=== PATIENT | female | born 1935 | race Hispanic/Latino ===

== ENCOUNTER 2019-07-28 17:52 | Inpatient (IN) | payer MEDICARE ==
[~2019-07-28] VITALS: Ht 154.9 cm; Wt 59.9 kg
[2019-07-28] MEDS ORDERED: SODIUM CHLORIDE 0.9% 1000ML 1,000 ML IV STA (18:16)
[2019-07-28] MEDS ORDERED: ONDANSETRON HCL INJ 2MG/ML 2ML 2 MG/ML VIAL IV PRN (18:30)
[2019-07-28] MEDS ORDERED: DIPHENHYDRAMINE HCL INJ 50 MG/ML VIAL IV PRN (18:30)
[2019-07-28] MEDS ORDERED: ENALAPRILAT IV INJ 1.25 MG/ML VIAL IV PRN (18:30)
[2019-07-28] MEDS ORDERED: MORPHINE SULFATE 2 MG/ML SYR 1ML IV PRN (18:30)
--- NOTE | 2019-07-28 19:05 | NUR ---
REC'D REPORT FROM OFF GOING BRET DOUGLAS. PT TO BE TRANSFERRED TO [facility]
[2019-07-28] MEDS ORDERED: SODIUM CHLORIDE 0.9% 1000ML 1,000 ML ONE (19:43)
[2019-07-28] MEDS ORDERED: PIPER-TAZ 3.375 GM 50 ML ONE (19:43)
[2019-07-28 20:00] VITALS: BP 145/63
[2019-07-28] MEDS: PIPER-TAZ 3.375 GM 50 ML IV SCH (20:10)
[2019-07-28] MEDS: SODIUM CHLORIDE 0.9% 1000ML 1,000 ML IV SCH (20:10)
--- NOTE | 2019-07-28 20:20 | NUR ---
REPORT TO GEORGE FOR RM 213. AWAITING ARRIVAL OF EMS FOR TRANSPORT
--- NOTE | 2019-07-28 20:40 | NUR ---
REPORT TO EMS
--- NOTE | 2019-07-28 21:15 | NUR ---
PT ADMITTED TO RM 213 VIA STRETCHER FROM [facility]. PT ALERT AND ORIENTED TO NAME, HOSPITAL, DIAGNOSIS: LEFT SIDE COLITIS WITH ABSCESS. RR EVEN AND UNLABORED. SKIN WARM AND INTACT. LAST BM 07/27. DENIES DYSURIA. PT C/O LOWER ABDOMINAL PAIN, 09/13. NO ACUTE DISTRESS AT THIS TIME. PT/FAMILY ORIENTED TO ROOM. CALL LIGHT WITHIN REACH. PT INSTRUCTED TO CALL FOR ASSISTANCE. PT IS NPO AT THIS TIME. CALL LIGHT WITHIN REACH. BED LOW/LOCKED. WILL CONTINUE TO MONITOR.
[2019-07-28 22:10] VITALS: BP 120/56
[2019-07-28 22:14] VITALS: BP 120/56
[2019-07-28] MEDS: FAMOTIDINE 20 MG/2 ML VIAL IV SCH (22:58)
[2019-07-28] MEDS: METRONIDAZOLE 500MG/NS 100ML 100 ML IV SCH (22:58)
[2019-07-29] VITALS (8 sets, daily range): BP systolic 106–123; BP diastolic 51–79
[2019-07-29] MEDS: PIPER-TAZ 3.375 GM 50 ML IV SCH ×4 (02:00→20:32)
[2019-07-29] MEDS: SODIUM CHLORIDE 0.9% 1000ML 1,000 ML IV SCH (06:02)
[2019-07-29] MEDS: METRONIDAZOLE 500MG/NS 100ML 100 ML IV SCH ×3 (06:33→22:09)
[2019-07-29] MEDS: FAMOTIDINE 20 MG/2 ML VIAL IV SCH ×2 (08:40→21:00)
[2019-07-29 09:26] LABS: HEMOGLOBIN 11.3 g/dL (12.0-16.0); MEAN CORPUSCULAR HEMOGLOBIN 31.3 pg (28-32); MEAN CORPUSCULAR HGB CONC 31.4 g/dL (31-35); MEAN CORPUSCULAR VOLUME 99.7 fL (81-99); PLATELET COUNT 233 x10e3/uL (140-360); RED BLOOD COUNT 3.61 x10e6/uL (3.6-5.1); RED CELL DISTRIBUTION WIDTH 12.6 % (11.7-14.4)
[2019-07-29 09:47] LABS: ANION GAP 8.6 mmol/L (8-16); BLOOD UREA NITROGEN 13 mg/dL (7-26); BUN/CREATININE RATIO 16 (6-25); CALCIUM 8.2 mg/dL (8.4-10.2); CARBON DIOXIDE 26 mmol/L (22-29); CHLORIDE 109 mmol/L (98-107); EST GLOMERULAR FILTRATION RATE > 60 ML/MIN (60-); GLUCOSE 84 mg/dL (74-118); POTASSIUM 4.6 mmol/L (3.5-5.1); SODIUM 139 mmol/L (136-145)
--- NOTE | 2019-07-29 10:10 | NUR ---
No concerns expressed. Provided pastoral presence, hospitality, and blessing. JAIMIE LEAL Welding Machine Operator [facility] O: [phone]
--- NOTE | 2019-07-29 10:18 | Consultation ---
DATE OF CONSULTATION: 07/29/2019 CHIEF COMPLAINT: Abdominal pain. HISTORY OF PRESENT ILLNESS: This patient is an 84-year-old female with one-week history of abdominal pain in lower abdomen with low-grade fevers with decreased appetite, but no nausea, vomiting, or diarrhea. PAST MEDICAL HISTORY: Significant for hypotension, high cholesterol, and history of CVA. PAST SURGICAL HISTORY: Positive for hysterectomy. ALLERGIES: THE PATIENT HAS NO DRUG ALLERGIES. SOCIAL HABITS: No smoking or alcohol use. REVIEW OF SYSTEMS: As mentioned in HPI. Particularly, no chest pain or shortness of breath. PHYSICAL EXAMINATION: VITAL SIGNS: Stable. She is afebrile. The patient is awake, alert, in mild to moderate discomfort. HEENT: Sclerae anicteric. NECK: Supple. LUNGS: Clear. HEART: Regular rate and rhythm. ABDOMEN: Soft with some guarding, tenderness, and rebound in the lower abdomen in the left lower quadrant and suprapubic region. EXTREMITIES: No cyanosis or edema. LABORATORY DATA: White cell count is 4.6 and hemoglobin of 11. CT of the abdomen reportedly show sigmoid diverticulitis with 3 cm abscess. ASSESSMENT: Acute diverticulitis with 3 cm abscess. PLAN: IV antibiotics. Consult IR for possible percutaneous drainage. We will follow the patient with you. Jose Rafael Sharp MD DNCurtis/MODL /[id number]
[2019-07-29 19:07] LABS: EOSINOPHILS % (MANUAL) 2 % (0-7); LYMPHOCYTES % (MANUAL) 35 % (19-48); MONOCYTES % (MANUAL) 7 % (3.4-9.0); NEUTROPHILS % (MANUAL) 49 % (40-74)
[2019-07-29 19:08] LABS: ANISOCYTOSIS MODERATE; PLATELET ESTIMATE ADEQUATE; PLATELET MORPHOLOGY COMMENT NORMAL; POIKILOCYTOSIS SLIGHT; RBC MORPHOLOGY COMMENT NORMAL
--- NOTE | 2019-07-29 19:20 | NUR ---
REPORT GIVEN TO ONCOMING NURSE, WALKING ROUNDS COMPLETE.
--- NOTE | 2019-07-29 19:26 | NUR ---
Patient received lying in bed. AAO x 4. Patient had no complaints of pain. No signs of respiratory distress. Fall precautions implemented. Patient instructed to call for assistance when needed. Call light within reach.
[2019-07-29] MEDS ORDERED: SODIUM CHLORIDE 0.9% 250ML 250 ML ONE (20:18)
--- NOTE | 2019-07-29 21:01 | NUR ---
Dr. Sharp paged to clarify if patient is having procedure done tomorrow (Percutaneous Drainage of Abscess) . Dr. Sharp confirmed procedure would be done by IR tomorrow.
--- NOTE | 2019-07-29 21:05 | NUR ---
Dr. Kohli notified of patient's NPO status without fluids and patient taking Jantoven 3mg daily at home. New order received for D5NS @ 75s cc/hr and PT/INR in am. Also, Dr. Kohli notified of patient's insomnia since the past 3 days. No new order received.
--- NOTE | 2019-07-29 21:17 | NUR ---
Radiology Dept. notified of IR procedure scheduled for tomorrow------Percutaneous Drainage of Abscess.
[2019-07-29] MEDS: DEXTROSE 5%/0.9% SOD CHL 1,000 ML IV SCH (21:27)
--- NOTE | 2019-07-29 22:14 | NUR ---
Law Instructor (Yojana) called stating no "imaging" has been done for patient. IR cannot perform procedure without any form of imaging record. Dr. Sharp paged to obtain "imaging" orders. Awaiting call back.
--- NOTE | 2019-07-29 23:07 | NUR ---
New order received from Dr. Sharp for CT ABD/PELVIS W.
[2019-07-29] MEDS ORDERED: JANTOVEN3 MG PO (23:26)
[2019-07-29] MEDS ORDERED: SODIUM CHLORIDE 0.9% 50ML 50 ML ONE (23:26)
[2019-07-29] MEDS ORDERED: DIGOXIN125 MCG PO (23:26)
[2019-07-29] MEDS ORDERED: METOPROLOL TART25 MG PO (23:26)
[2019-07-29] MEDS ORDERED: IOPAMIDOL 370 MG/ML 200 ML INFUS..BTL INJ ONE (23:26)
[2019-07-29] MEDS ORDERED: SIMVASTATIN20 MG PO (23:26)
--- NOTE | 2019-07-29 23:26 | NUR ---
Patient off floor for CT/ABD/PEL W
--- NOTE | 2019-07-29 23:28 | NUR ---
Input of patient's home medications given by daughter---Surekha
--- NOTE | 2019-07-29 23:38 | NUR ---
Patient back to floor from CT/ABD/PEL W . Patient in stable condition
[2019-07-30] VITALS (9 sets, daily range): BP systolic 111–140; BP diastolic 55–67
--- NOTE | 2019-07-30 00:34 | Diagnostic Imaging Report ---
EXAM: CT Abdomen and Pelvis WITH contrast INDICATION: Diverticulitis COMPARISON: None. TECHNIQUE: Abdomen and pelvis were scanned utilizing a multidetector helical scanner from the lung base to the pubic symphysis after administration of IV contrast. Coronal and sagittal reformations were obtained. Routine protocol was performed. Scan was performed when during portal venous phase. IV CONTRAST: 100 mL of Isovue 370 ORAL CONTRAST: None COMPLICATIONS: None RADIATION DOSE: Total DLP: 200 mGy*cm Estimated effective dose: (DLP x 0.015 x size factor) mSv CTDIvol has been reviewed. It is below the limits set by the Radiation Protocol Committee (RPC). Dose modulation, iterative reconstruction, and/or weight based adjustment of the mA/kV was utilized to reduce the radiation dose to as low as reasonably achievable. FINDINGS: LINES and TUBES: None. LOWER THORAX: Partially visualized left basilar ground glass/consolidative opacity HEPATOBILIARY: A 2.1 cm simple appearing left hepatic cyst. No suspicious focal hepatic lesions. No biliary ductal dilation. GALLBLADDER: No radio-opaque stones or sludge. No wall thickening. SPLEEN: No splenomegaly. PANCREAS: No focal masses or ductal dilatation. ADRENALS: No adrenal nodules KIDNEYS/URETERS: Kidneys enhance symmetrically. No hydronephrosis. No cystic or solid mass lesions. No stones. GI TRACT: Focal wall thickening in the sigmoid colon with surrounding fat stranding. Colonic diverticuli, worst in the sigmoid colon. No abnormal distention or evidence of bowel obstruction. Appendix is normal. PELVIC ORGANS/BLADDER: Hysterectomy. No adnexal masses. Urinary bladder unremarkable. LYMPH NODES: No lymphadenopathy. VESSELS: Scattered mild arterial vascular calcifications. PERITONEUM / RETROPERITONEUM: No free air or fluid. BONES: There are degenerative changes in the spine. Mild T12 vertebral body compression fracture, likely chronic. Low bone mineral density. SOFT TISSUES: Unremarkable. IMPRESSION: 1. Acute uncomplicated sigmoid diverticulitis. 2. Mild T12 vertebral body compression fracture, likely chronic. Low bone mineral density. 3. Partially visualized left basilar ground glass/consolidative opacity could be atelectasis or pneumonia. Signed by: Maurice Barron DO on 07/30/2019 12:30 AM
[2019-07-30] MEDS: PIPER-TAZ 3.375 GM 50 ML IV SCH ×4 (02:15→20:00)
--- NOTE | 2019-07-30 02:50 | NUR ---
Dr. Natalia Vásquez here to see patient.
--- NOTE | 2019-07-30 03:05 | NUR ---
Patient informed of upcoming procedure----Percutaneous drainage of abscess. Patient verbalized understanding and signed "Disclosure and Consent" form.
[2019-07-30 05:30] LABS: BASOPHILS % 0.8 % (0.0-1.0); HEMOGLOBIN 11.9 g/dL (12.0-16.0); LYMPHOCYTES # (AUTO) 1.4 (1.0-3.2); LYMPHOCYTES % 35.2 % (18.0-39.1); MEAN CORPUSCULAR HEMOGLOBIN 31.3 pg (28-32); MEAN CORPUSCULAR HGB CONC 32.2 g/dL (31-35); MEAN CORPUSCULAR VOLUME 97.4 fL (81-99); MONOCYTES # (AUTO) 0.4 (0.2-0.8); MONOCYTES % 11.2 % (4.4-11.3); NEUTROPHILS % 51.3 % (38.7-80.0); PLATELET COUNT 248 x10e3/uL (140-360); RED CELL DISTRIBUTION WIDTH 12.4 % (11.7-14.4)
[2019-07-30 05:45] LABS: INR 1.17; PROTHROMBIN TIME 15.7 seconds (11.9-14.5)
[2019-07-30 06:15] LABS: FERRITIN 87.12 ng/mL (4.63-204.00)
[2019-07-30] MEDS: METRONIDAZOLE 500MG/NS 100ML 100 ML IV SCH ×3 (06:16→22:45)
--- NOTE | 2019-07-30 06:55 | NUR ---
Patient resting comfortably. Walking rounds done. BSSR given to oncoming nurse.
[2019-07-30] MEDS ORDERED: HYDROMORPHONE 1MG/1ML INJ IV PRN (08:00)
--- NOTE | 2019-07-30 08:44 | Progress Note ---
DATE: 07/30/2019 SUBJECTIVE: Ms. Frazier is an 84-year-old female with history of atrial fibrillation, hypertension, hyperlipidemia, who was seen in the clinic complaining of abdominal pain and chills. Abdominal and pelvic CT done as an outpatient showed diverticulitis with probably abscess, so the patient was sent to the emergency room for admission. Repeat abdomen and pelvic CT done yesterday does not show any abscess formation. PHYSICAL EXAMINATION: GENERAL: She is awake and alert. VITAL SIGNS: Temperature is 96.1, blood pressure 113/55. HEART: Regular rate. LUNGS: Clear to auscultation. ABDOMEN: Distended. She has suprapubic and left lower quadrant tenderness. LABORATORY DATA: On the blood work, white count is 3.83, hemoglobin is 11.9, hematocrit 37. Potassium 4.7, creatinine is 0.80. INR is 1.17. Like I said, the repeated CT shows acute uncomplicated sigmoid diverticulitis. ASSESSMENT: 1. Acute diverticulitis. 2. Dysuria. Urine was not done. 3. Atrial fibrillation. 4. Hypertension. 5. Hyperlipidemia. PLAN: At present time is to continue the patient n.p.o., continue IV antibiotics. If the pain improves, we can probably start her on some clear diet. As per the last abdominal and pelvic CT does not look that the patient needs any type of interventional radiologist for percutaneous drainage. We will discuss the case with Dr. Sharp. All this was explained to patient. All questions were answered to satisfaction. MD CASEY Felix/RAINA /[id number]
[2019-07-30] MEDS: FAMOTIDINE 20 MG/2 ML VIAL IV SCH ×2 (09:19→22:00)
[2019-07-30] MEDS: DEXTROSE 5%/0.9% SOD CHL 1,000 ML IV SCH ×2 (16:52→23:40)
--- NOTE | 2019-07-30 19:54 | NUR ---
walking rounds complete, report given to oncoming nurse.
--- NOTE | 2019-07-30 19:55 | NUR ---
Patient received lying in bed. AAO x 3. No acute distress noted. Call light within reach.
--- NOTE | 2019-07-30 22:10 | NUR ---
Patient complained of pain to bilateral feet (11/13). Dr. Seun gonzalez. Awaiting call back. Addendum: 07/30/19 at 2215 by Franci Rachel RN Please disregard above entry: Wrong patient
--- NOTE | 2019-07-30 22:31 | NUR ---
Urine sample sent to lab for analysis.
[2019-07-30 22:39] LABS: CLARITY,URINE CLOUDY (CLEAR); COLOR,URINE YELLOW (YELLOW)
[2019-07-30 22:40] LABS: BILIRUBIN,URINE NEGATIVE (NEGATIVE); KETONES,URINE 2+ (NEGATIVE); LEUKOCYTE ESTERASE ,URINE NEGATIVE (NEGATIVE); NITRITE,URINE NEGATIVE (NEGATIVE); PROTEIN,URINE DIPSTICK NEGATIVE (NEGATIVE); URINE UROBILINOGEN 0.2 mg/dL (0.2 - 1)
[2019-07-30 23:05] LABS: WBC,URINE (MAN) 0-5 /HPF (0-5)
[2019-07-30 23:06] LABS: BACTERIA,URINE MODERATE /HPF; EPITHELIAL CELLS,URINE FEW /LPF
[2019-07-31] VITALS (10 sets, daily range): BP systolic 80–162; BP diastolic 41–68
--- NOTE | 2019-07-31 00:58 | NUR ---
Dr. Natalia Vásquez here to see patient. New order received for Melatonin 5 mg HS and Clear liquid diet.
[2019-07-31] MEDS ORDERED: MELATONIN 5 MG TABLET PO ONE (01:00)
[2019-07-31] MEDS: PIPER-TAZ 3.375 GM 50 ML IV SCH ×3 (02:00→14:00)
[2019-07-31 05:30] LABS: BASOPHILS % 0.8 % (0.0-1.0); EOSINOPHILS # (AUTO) 0.1 (0.0-0.4); EOSINOPHILS % 1.6 % (0.0-6.0); HEMATOCRIT 35.5 % (34.2-44.1); HEMOGLOBIN 11.7 g/dL (12.0-16.0); LYMPHOCYTES # (AUTO) 1.7 (1.0-3.2); LYMPHOCYTES % 43.2 % (18.0-39.1); MEAN CORPUSCULAR HEMOGLOBIN 31.5 pg (28-32); MEAN CORPUSCULAR VOLUME 95.7 fL (81-99); MONOCYTES # (AUTO) 0.5 (0.2-0.8); NEUTROPHILS # (AUTO) 1.6 (2.1-6.9); NEUTROPHILS % 42.4 % (38.7-80.0); PLATELET COUNT 262 x10e3/uL (140-360); RED BLOOD COUNT 3.71 x10e6/uL (3.6-5.1); RED CELL DISTRIBUTION WIDTH 12.3 % (11.7-14.4)
[2019-07-31] MEDS: METRONIDAZOLE 500MG/NS 100ML 100 ML IV SCH ×2 (06:21→14:00)
--- NOTE | 2019-07-31 06:45 | NUR ---
Shift report given to oncoming nurse.
[2019-07-31] MEDS: FAMOTIDINE 20 MG/2 ML VIAL IV SCH (09:00)
--- NOTE | 2019-07-31 09:13 | Discharge Summary ---
HISTORY OF PRESENT ILLNESS: Ms. Frazier is an 84-year-old female with history of hypertension, hyperlipidemia, atrial fibrillation, came in to the clinic complaining of abdominal pain and chills. Outpatient abdominal and pelvis CT showed diverticulitis with probably abscess, so the patient was admitted to the hospital. The repeated CT in the hospital did not show any abscess. The patient has been n.p.o., on IV antibiotics, but she was started on clear liquid diet today. So, the plan if she is stable and she can tolerate a diet, is to discharge her home. PHYSICAL EXAMINATION: GENERAL: Today, she is awake and alert. She is feeling better. VITAL SIGNS: Temperature is 97, blood pressure 120/56. HEART: Regular rate. LUNGS: Clear to auscultation. ABDOMEN: With mild tenderness in the suprapubic area. LABORATORY DATA: On the blood work, white count is 3.82, hemoglobin 11.7, hematocrit 35.5. Potassium 4.6. Creatinine 0.80. Iron was normal, vitamin B12 levels also. Repeat CAT scan did not show any abscess. DISCHARGE DIAGNOSES: 1. Acute diverticulitis. 2. Dysuria. Urine culture came back normal. 3. Atrial fibrillation. 4. Hypertension. 5. Hyperlipidemia. PLAN: Plan at the present time is to start the patient on clear diet and advance as tolerated. If she is stable, she could go home on p.o. Cipro and Flagyl and follow up with me in one week. All this was discussed with the patient. All questions were answered to satisfaction. Please see home medication reconciliation list. MD CASEY Felix/MODL /[id number]
--- NOTE | 2019-07-31 09:35 | NUR ---
Nutrition Screen Note RD Recommendation for Physician: -ADAT to GI soft per MD. Plan of Care: RD following, monitoring for tolerance and adequacy. ONS if intake is low. Nutrition reason for involvement: (Clear liquid x 3 days) Primary Diagnose(s): Left sided colitis with abscess PMH: significant for hypotension, high cholesterol, and history of CVA. Ht: 61 in Wt: 154 lb BMI: 29.1 kg/m2 IBW: [address] Assessment: 07/30: 84 YOF admitted for colitis with PMH listed above. The pt speaks Indonesian and some Indonesian, was able to speak with the patient; attempted cultural link but the call was dropped. She reported a good appetite and was unsure of any recent weight loss. There are no past weights in EMR. The pt denied N/V/C/D/chewing or swallowing issues as well as any food allergies. There was no family in the room. The pt has been on clear liquids for three days, observed eaten clear liquid breakfast tray at bedside. Per MD note- advance her diet today and then d/c home if she can tolerate the diet. Recommend ONS if the pt has low intake. LBM: 07/30. Chart reviewed. Labs and meds reviewed. Will continue to monitor. Current Diet: clear liquids Malnutrition Evaluation (07/30) The patient does not meet criteria for a specified degree of malnutrition at this time. Will re-evaluate at follow-up as appropriate. Diet Education Needs Assessment: Diet education not indicated, pt is on transition diet. Diet Adequacy: Not meeting calorie needs, Not meeting protein needs-pt is still on clear liquids Nutrition Care Level:2- pt is only on clear liquids Signed: Elle Ching RD, LD
--- NOTE | 2019-07-31 14:57 | NUR ---
IMM letter delivered and explained to pt. Signed copy placed in chart. Austrian copy provided to pt.
[2019-07-31] MEDS: DEXTROSE 5%/0.9% SOD CHL 1,000 ML IV SCH ×2 (18:00→19:51)
[2019-07-31] MEDS: MELATONIN 5 MG TABLET PO SCH (21:00)
--- NOTE | 2019-07-31 21:26 | NUR ---
PT C/O OF LEFT ARM PAIN AND CHEST PAIN. HR 124 R 20 O2 SAT 95% B/P 100/60. DAUGHTER CALLED CONCERNED PT HAVING CHEST PAIN. CHARGE NURSE NOTIFIED. STAT EKG DONE.
[2019-07-31] MEDS ORDERED: NITROGLYCERIN 0.4 MG SUBL ONE (22:04)
[2019-07-31] MEDS ORDERED: DIGOXIN INJ 0.25 MG/ML 2 ML AMP ONE (22:19)
[2019-07-31] MEDS ORDERED: SODIUM CHLORIDE 0.9% 1000ML 1,000 ML ONE (22:19)
--- NOTE | 2019-07-31 22:30 | NUR ---
B/P AT 2139 90/60 HR 84 R 20 O2 SAT 96% ON RA. B/P AT 2154 WAS 88/32 HR 128 R 20 PT CONTINUES TO REPORT PAIN IN CHEST AND LEFT ARM. DR DOMÍNGUEZ NOTIFIED AT 2144 AWAITING CALL BACK.O2 SAT 97%- PLACED ON 2L PER N/C. B/P LOW RAPID RESPONSE CALLED. EKG REPEATED. D5NS INCREASED TO BOLUS. ANOTHER EKG DONE PER RAPID RESPONSE TEAM. RECTAL TEMP 99.5 HR 128. B/P 88/32. DIGIXON GIVEN ORDERED.B/P IMPROVE 104/55 HR 114.LABS DRAWN ORDERED. PT TRANSPORTED TO ICU PER DR GOTTLIEB. FAMILY NOTIFIED BY 7P NURSE- TALKED WITH DEXTER HER DAUGHTER. RAPID RESPONSE DR CALLED DR DOMÍNGUEZ.
[2019-07-31] MEDS ORDERED: DIGOXIN INJ 0.25 MG/ML 2 ML AMP IV ONE (22:45)
[2019-07-31] MEDS ORDERED: SODIUM CHLORIDE 0.9% 1000ML 1,000 ML IV ONE (22:45)
[2019-07-31] MEDS ORDERED: AMIODARONE HCL 360MG 200 ML IV ONE (22:51)
[2019-07-31 22:52] LABS: BASOPHILS % 0.4 % (0.0-1.0); EOSINOPHILS # (AUTO) 0.1 (0.0-0.4); EOSINOPHILS % 1.7 % (0.0-6.0); HEMATOCRIT 39.3 % (34.2-44.1); HEMOGLOBIN 12.9 g/dL (12.0-16.0); LYMPHOCYTES # (AUTO) 2.5 (1.0-3.2); LYMPHOCYTES % 55.1 % (18.0-39.1); MEAN CORPUSCULAR HEMOGLOBIN 31.7 pg (28-32); MEAN CORPUSCULAR HGB CONC 32.8 g/dL (31-35); MEAN CORPUSCULAR VOLUME 96.6 fL (81-99); MONOCYTES # (AUTO) 0.7 (0.2-0.8); MONOCYTES % 14.3 % (4.4-11.3); NEUTROPHILS # (AUTO) 1.3 (2.1-6.9); NEUTROPHILS % 28.3 % (38.7-80.0); PLATELET COUNT 275 x10e3/uL (140-360); RED BLOOD COUNT 4.07 x10e6/uL (3.6-5.1); RED CELL DISTRIBUTION WIDTH 12.8 % (11.7-14.4)
[2019-07-31 22:56] LABS: INR 1.2
[2019-07-31 22:57] LABS: PARTIAL THROMBOPLASTIN TIME 39.2 seconds (23.8-35.5)
[2019-07-31] MEDS ORDERED: AMIODARONE HCL 150 MG/100 ML BAG IV ONE (23:00)
[2019-07-31] MEDS ORDERED: AMIODARONE HCL 360MG 200 ML IV NR (23:15)
[2019-07-31 23:18] LABS: MAGNESIUM 1.6 MG/DL (1.3-2.1)
[2019-07-31 23:22] LABS: ALBUMIN 3.2 g/dL (3.5-5.0); ANION GAP 14.5 mmol/L (8-16); CALCIUM 8.4 mg/dL (8.4-10.2); CREATININE, SERUM 0.95 mg/dL (0.57-1.11); POTASSIUM 3.5 mmol/L (3.5-5.1)
[2019-07-31 23:28] LABS: CREATINE KINASE MB 1.2 ng/mL (0-5.0)
[2019-08-01] VITALS (23 sets, daily range): BP systolic 77–130; BP diastolic 47–79
[2019-08-01] MEDS: PIPER-TAZ 3.375 GM 50 ML IV SCH ×4 (00:16→16:29)
[2019-08-01] MEDS: FAMOTIDINE 20 MG/2 ML VIAL IV SCH ×3 (00:17→21:18)
[2019-08-01] MEDS: METRONIDAZOLE 500MG/NS 100ML 100 ML IV SCH ×4 (00:18→23:48)
[2019-08-01] MEDS ORDERED: AMIODARONE HCL 360MG 200 ML IV ONE (05:08)
--- NOTE | 2019-08-01 09:03 | Progress Note ---
DATE: 08/01/2019 SUBJECTIVE: Ms. Frazier is an 84-year-old female with history of hypertension, hyperlipidemia, atrial fibrillation, who came to the emergency room because the CAT scan of her abdomen showed diverticulitis with probably abscess. She was started on IV antibiotics. She was seen by surgeon and GI. Repeated CAT scan did not show any abscess formation, so patient did not require any interventional procedure. Last night she developed chest pain and she was found to be on atrial fibrillation with rapid ventricular rate. Today, she was transferred to ICU. She is doing better and now, she converted to a regular rate and her rate is 64 per minute. PHYSICAL EXAMINATION: GENERAL: She is awake and alert. She is feeling much better. VITAL SIGNS: Temperature is 98.3, blood pressure 113/54, heart rate is 69 per minute. LUNGS: Clear to auscultation. ABDOMEN: Soft. LABORATORY DATA: On the blood work; white count is 4.61, hemoglobin 12.9, hematocrit 39.3, potassium 3.5, creatinine is 0.95. ASSESSMENT AND PLAN: 1. Acute diverticulitis. No need for interventional procedure. 2. Atrial fibrillation with rapid ventricular rate, now converted to sinus rhythm. 3. Hypertension. 4. Hyperlipidemia. PLAN: At present time is to continue on p.o. digoxin. Restart her Coumadin. She is on Lovenox. Continue to monitor PT/INR getting to between 2 and 3. Continue IV antibiotics. We are awaiting for Cardiology consult. All this was discussed with the patient. All questions were answered to satisfaction. MD CASEY Felix/RAINA /[id number]
[2019-08-01] MEDS: ENOXAPARIN SOD INJ 40 MG/0.4 ML SYR SC SCH ×2 (11:06→21:18)
[2019-08-01] MEDS: WARFARIN SOD 5 MG TAB PO SCH (16:29)
[2019-08-01] MEDS: DEXTROSE 5%/0.9% SOD CHL 1,000 ML IV SCH (17:17)
[2019-08-01] MEDS: AMIODARONE HCL 200 MG TAB PO SCH (17:17)
--- NOTE | 2019-08-01 17:19 | Consultation ---
DATE OF CONSULTATION: 08/01/2019 Cardiology Consultation HISTORY OF PRESENT ILLNESS: This is an 84-year-old woman, who initially presented on the with abdominal pain in the lower quadrants, low-grade fevers, decreased appetite, and was found to have diverticulitis. No surgery was needed and she was continued on antibiotics. Last night, she started developing chest pain, mild to moderate in intensity, located over the precordium. No radiation. No shortness of breath. No other exacerbating or relieving factors. She was found to be in atrial fibrillation, but converted with amiodarone. REVIEW OF SYSTEMS: Twelve-point review of system was conducted and is negative except as stated above in the HPI. PAST MEDICAL HISTORY: As stated above in the HPI. PAST SURGICAL HISTORY: None recent. PAST FAMILY HISTORY: Noncontributory to current illness. SOCIAL HISTORY: No illicit drug, alcohol, or tobacco use. ALLERGIES: NO KNOWN DRUG ALLERGIES. MEDICATIONS: See medication reconciliation form. PHYSICAL EXAMINATION: VITAL SIGNS: Temperature is 98.3, heart rate 68, respirations are 17, blood pressure is 113/54, and oxygen saturation is 99% on 2 liters nasal cannula. GENERAL: She is a well-appearing elderly woman, lying comfortably in bed, in no apparent distress. Alert and oriented x3. HEENT: Head is normocephalic and atraumatic. Eyes, extraocular muscles are intact. Conjunctivae are clear. NECK: No JVD. No bruits. CARDIOVASCULAR: She has regular rate and rhythm. LUNGS: Clear to auscultation. ABDOMEN: Soft, nontender, and nondistended. EXTREMITIES: No clubbing, cyanosis, or edema. VASCULAR: 2+ pulses. SKIN: Warm, dry, and intact. NEUROLOGIC: No focal deficits noted. LABORATORY DATA: Reviewed. A 12-lead electrocardiogram showed atrial fibrillation. IMPRESSION: 1. Diverticulitis. 2. Atrial fibrillation. 3. Abnormal echocardiogram. 4. Hypertension. 5. Hyperlipidemia. RECOMMENDATIONS: Her intravenous amiodarone has been discontinued. Start her on amiodarone 200 mg p.o. b.i.d. Continue Coumadin for therapeutic INR. Monitor daily electrolytes. We will check an echocardiogram. Antonio Connelly DO BM/MODL /[id number]
[2019-08-01] MEDS: MELATONIN 5 MG TABLET PO SCH (21:18)
--- NOTE | 2019-08-01 22:31 | NUR ---
Received report from ER nurse. Patient assigned to room 287.
--- NOTE | 2019-08-01 22:57 | NUR ---
Patient arrived to the floor via bed.
[2019-08-01] MEDS ORDERED: SODIUM CHLORIDE 0.9% 250ML 250 ML ONE (23:42)
--- NOTE | 2019-08-01 23:51 | NUR ---
Patient denies pain or discomfort at this time. Continue monitor.
[2019-08-02] VITALS (8 sets, daily range): BP systolic 120–161; BP diastolic 58–81
[2019-08-02] MEDS: PIPER-TAZ 3.375 GM 50 ML IV SCH ×4 (00:30→17:25)
[2019-08-02 07:09] LABS: INR 1.4; PROTHROMBIN TIME 18.1 seconds (11.9-14.5)
[2019-08-02] MEDS: METRONIDAZOLE 500MG/NS 100ML 100 ML IV SCH ×2 (09:03→17:24)
[2019-08-02] MEDS: FAMOTIDINE 20 MG/2 ML VIAL IV SCH (09:03)
[2019-08-02] MEDS: ENOXAPARIN SOD INJ 40 MG/0.4 ML SYR SC SCH ×2 (09:06→21:00)
[2019-08-02] MEDS: AMIODARONE HCL 200 MG TAB PO SCH ×2 (09:06→17:24)
[2019-08-02 10:53] LABS: EOSINOPHILS # (AUTO) 0.1 (0.0-0.4); EOSINOPHILS % 1.6 % (0.0-6.0); HEMATOCRIT 33.9 % (34.2-44.1); HEMOGLOBIN 10.9 g/dL (12.0-16.0); LYMPHOCYTES # (AUTO) 1.9 (1.0-3.2); LYMPHOCYTES % 49.1 % (18.0-39.1); MEAN CORPUSCULAR HEMOGLOBIN 31.7 pg (28-32); MEAN CORPUSCULAR HGB CONC 32.2 g/dL (31-35); MEAN CORPUSCULAR VOLUME 98.5 fL (81-99); MONOCYTES # (AUTO) 0.7 (0.2-0.8); MONOCYTES % 17.2 % (4.4-11.3); NEUTROPHILS # (AUTO) 1.2 (2.1-6.9); NEUTROPHILS % 31.1 % (38.7-80.0); PLATELET COUNT 215 x10e3/uL (140-360); RED BLOOD COUNT 3.44 x10e6/uL (3.6-5.1); RED CELL DISTRIBUTION WIDTH 13.2 % (11.7-14.4)
--- NOTE | 2019-08-02 11:01 | Progress Note ---
DATE: 08/02/2019 CHIEF COMPLAINT/HISTORY OF PRESENT ILLNESS: This is an 84-year-old woman, whose primary treating diagnosis is acute sigmoid diverticulitis. Moreover, during this hospitalization, she was found to have paroxysmal atrial fibrillation. She is currently on warfarin 5 mg daily as well as enoxaparin 40 mg subcutaneous twice a day. She is currently receiving intravenous Flagyl and Zosyn for her acute diverticulitis. The patient states her abdominal pain is resolved. The patient denies any cough. She also denies any fever or chills. On admission, a CT abdomen and pelvis revealed findings consistent with acute sigmoid diverticulitis, but also revealed left ground-glass/consolidative opacity. Once again, the patient denies any cough or chest congestion. The patient's prothrombin time and INR today are 18.1 and 1.4 respectively. REVIEW OF SYSTEMS: As per HPI. PHYSICAL EXAMINATION: GENERAL: She is awake, alert, fluent. She is predominantly Yi speaker. Does not appear to be in any obvious distress. VITAL SIGNS: Blood pressure is 120/60, pulse 60, respiratory rate 18, temperature 97, and oxygen saturation 97% on room air. Height 5 feet 1 inch, weight 132 pounds. INTEGUMENT: Skin is warm and dry. No pallor, jaundice, or diaphoresis. HEENT: Anicteric sclerae. Moist mucous membranes. NECK: Supple. No evidence of jugular venous distention. CARDIOVASCULAR: Distant heart sounds. Regular rate and rhythm. LUNGS: No rales, no rhonchi, or wheezes. ABDOMEN: Soft. Normal bowel sounds. Nontender. EXTREMITIES: No edema or deformity. NEURO: Intact. DIAGNOSES: 1. Acute sigmoid diverticulitis. 2. Left lower lobe pneumonia, likely. 3. Paroxysmal atrial fibrillation. 4. Wjnzm-[id number]-[id number] diastolic heart failure. PLAN: 1. Order chest x-ray. 2. We will check electrolytes since the patient had episode of atrial fibrillation yesterday. 3. We will follow prothrombin time and INR level since she is on warfarin therapy. 4. Continue intravenous antibiotics for patient's acute sigmoid diverticulitis. I spent 25 minutes in the care of the patient. MD JOHANNY Herrera/RAINA /[id number] MTDRolando
[2019-08-02 11:07] LABS: ALANINE AMINOTRANSFERASE 15 IU/L (0-55); ALBUMIN 2.7 g/dL (3.5-5.0); ALKALINE PHOSPHATASE 40 IU/L (40-150); ANION GAP 8.3 mmol/L (8-16); BLOOD UREA NITROGEN 5 mg/dL (7-26); BUN/CREATININE RATIO 7 (6-25); CALCIUM 7.8 mg/dL (8.4-10.2); CARBON DIOXIDE 23 mmol/L (22-29); CHLORIDE 112 mmol/L (98-107); CREATININE, SERUM 0.76 mg/dL (0.57-1.11); EST GLOMERULAR FILTRATION RATE > 60 ML/MIN (60-); GLUCOSE 85 mg/dL (74-118); POTASSIUM 3.3 mmol/L (3.5-5.1); SODIUM 140 mmol/L (136-145)
[2019-08-02] MEDS ORDERED: POTASSIUM CHLORIDE 20 MEQ TAB CR PO ONE ×2 (12:00→15:00)
[2019-08-02] MEDS: WARFARIN SOD 5 MG TAB PO SCH (17:25)
--- NOTE | 2019-08-02 19:53 | NUR ---
Received change of shift report from AM nurse. Walking rounds completed.
[2019-08-02] MEDS: MELATONIN 5 MG TABLET PO SCH (21:00)
[2019-08-03] VITALS (7 sets, daily range): BP systolic 110–165; BP diastolic 58–74
[2019-08-03] MEDS: PIPER-TAZ 3.375 GM 50 ML IV SCH
[2019-08-03] MEDS: METRONIDAZOLE 500MG/NS 100ML 100 ML IV SCH (00:30)
[2019-08-03 07:02] LABS: INR 1.69; PROTHROMBIN TIME 21.1 seconds (11.9-14.5)
[2019-08-03 07:05] LABS: ALANINE AMINOTRANSFERASE 15 IU/L (0-55); ALBUMIN 2.9 g/dL (3.5-5.0); ALKALINE PHOSPHATASE 42 IU/L (40-150); ANION GAP 11.1 mmol/L (8-16); BLOOD UREA NITROGEN < 5 mg/dL (7-26); CALCIUM 8.3 mg/dL (8.4-10.2); CARBON DIOXIDE 23 mmol/L (22-29); CHLORIDE 109 mmol/L (98-107); CREATININE, SERUM 0.78 mg/dL (0.57-1.11); EST GLOMERULAR FILTRATION RATE > 60 ML/MIN (60-); GLUCOSE 79 mg/dL (74-118); MAGNESIUM 1.5 MG/DL (1.3-2.1); POTASSIUM 4.1 mmol/L (3.5-5.1); SODIUM 139 mmol/L (136-145)
[2019-08-03 07:32] LABS: BUN/CREATININE RATIO 6 (6-25)
[2019-08-03 07:50] LABS: BASOPHILS # (AUTO) 0.1 (0.0-0.1); BASOPHILS % 1.3 % (0.0-1.0); EOSINOPHILS # (AUTO) 0.1 (0.0-0.4); EOSINOPHILS % 1.9 % (0.0-6.0); HEMOGLOBIN 11.8 g/dL (12.0-16.0); LYMPHOCYTES % 53.7 % (18.0-39.1); MEAN CORPUSCULAR HEMOGLOBIN 31.9 pg (28-32); MEAN CORPUSCULAR HGB CONC 32.8 g/dL (31-35); MEAN CORPUSCULAR VOLUME 97.3 fL (81-99); MONOCYTES # (AUTO) 0.6 (0.2-0.8); MONOCYTES % 14.7 % (4.4-11.3); NEUTROPHILS # (AUTO) 1.1 (2.1-6.9); NEUTROPHILS % 28.1 % (38.7-80.0); PLATELET COUNT 217 x10e3/uL (140-360); RED CELL DISTRIBUTION WIDTH 13.2 % (11.7-14.4)
[2019-08-03] MEDS: AMIODARONE HCL 200 MG TAB PO SCH ×2 (09:00→17:05)
--- NOTE | 2019-08-03 09:30 | Diagnostic Imaging Report ---
EXAMINATION: Chest PA and lateral views INDICATION: Diastolic CHF. COMPARISON: None FINDINGS: TUBES and LINES: None. LUNGS: Increased density in the left lower hemithorax suggestive of consolidation. Mild pulmonary venous congestion. PLEURA: Trace right and small left pleural effusion. No pneumothorax. HEART AND MEDIASTINUM: Cardiac size is mildly enlarged. There are atherosclerotic calcifications within the aorta. BONES AND SOFT TISSUES: No acute osseous lesion. UPPER ABDOMEN: No free air under the diaphragm. IMPRESSION: 1. Mild bilateral pulmonary venous congestion. 2. Trace right and small left pleural effusions. 3. Left basilar consolidation. Signed by: Dr. Simeon Elizondo M.D. on 08/03/2019 9:26 AM
--- NOTE | 2019-08-03 11:00 | Progress Note ---
DATE: 08/03/2019 CHIEF COMPLAINT/HISTORY OF PRESENT ILLNESS: This is an 84-year-old woman, whose primary treating diagnosis was acute sigmoid diverticulitis and likely left lower lobe pneumonia. The patient underwent a chest x-ray yesterday, which confirmed a left lower lobe consolidation. The patient denies any abdominal pain or diarrhea. The patient states she is eager to be discharged home. She also has underlying history of paroxysmal atrial fibrillation. Today's prothrombin time and INR level were 21.1 and 1.69 respectively. Today's BUN and creatinine were 5 and 0.78 respectively. The patient's B-type natriuretic peptide level yesterday was 367. The patient's white blood cell count today was 3700, 53% segmented neutrophils. REVIEW OF SYSTEMS: As per HPI. PHYSICAL EXAMINATION: GENERAL: She is awake, alert, and oriented. She is pleasant and cooperative on exam. Does not appear to be in any obvious distress. VITAL SIGNS: Blood pressure 136/70, pulse 70, respiratory rate 18, temperature 97.5, oxygen saturation 96% on room air. BMI 24. INTEGUMENT: Skin is warm and dry. No pallor, jaundice, or diaphoresis. HEENT: Anicteric sclerae, moist mucous membranes. NECK: Supple. CARDIOVASCULAR: Distant heart sounds. Regular rate and rhythm. LUNGS: No rales. No rhonchi or wheezes. ABDOMEN: Benign. EXTREMITIES: No edema or deformities. NEUROLOGIC: Intact. DIAGNOSES: 1. Left lower lobe pneumonia. 2. Acute sigmoid diverticulitis, resolved. 3. Paroxysmal atrial fibrillation. 4. Acute on chronic diastolic heart failure. PLAN: 1. We will discontinue Zosyn and metronidazole. 2. We will order intravenous cefepime and azithromycin for the patient's left lower lobe pneumonia. 3. We will stop enoxaparin. 4. Continue oral warfarin for patient's paroxysmal atrial fibrillation. 5. Discharge planning for likely Monday August 05, 2019. I spent 25 minutes in the care of this patient. MD JOHANNY Herrera/RAINA /[id number] KANDACE
[2019-08-03] MEDS: AZITHROMYCIN 500MG/NS 250 ML 250 ML IV SCH (12:35)
[2019-08-03] MEDS: CEFEPIME 1GM/NS 0.9% 50 ML 50 ML IV SCH ×2 (12:35→23:44)
[2019-08-03] MEDS: WARFARIN SOD 5 MG TAB PO SCH (17:05)
[2019-08-03] MEDS: MELATONIN 5 MG TABLET PO SCH (21:33)
[2019-08-03] MEDS ORDERED: SODIUM CHLORIDE 0.9% 250ML 250 ML ONE (23:39)
[2019-08-04] VITALS: BP 117/59
--- NOTE | 2019-08-04 03:03 | Progress Note ---
DATE: 08/03/2019 Cardiology Progress Note SUBJECTIVE: No major events overnight. OBJECTIVE: VITAL SIGNS: Temperature afebrile, pulse 60, respiratory rate 18, blood pressure 140/63, saturating 97% on room air. GENERAL: Elderly female, in no acute distress. CARDIOVASCULAR: Regular rate and rhythm. No murmurs, rubs, or gallops. LUNGS: Clear to auscultation anteriorly. ABDOMEN: Soft, mildly tender, nondistended. NEURO AND PSYCH: Alert and oriented x2. INPATIENT MEDICATIONS: Reviewed. LABORATORY DATA: Reviewed. TELEMETRY DATA: Reviewed, shows normal sinus rhythm. ASSESSMENT AND PLAN: 1. History of atrial fibrillation with rapid ventricular response. 2. Diverticulitis. 3. Abnormal echocardiogram. 4. Hypertension. 5. Hyperlipidemia. RECOMMENDATIONS: Remains in normal sinus rhythm. Continue amiodarone p.o. and warfarin, otherwise doing well from cardiovascular standpoint. Thank you for this consult. We will continue to follow. MD RATNA Joe/RAINA /[id number]
[2019-08-04 04:00] VITALS: BP 112/65
[2019-08-04 05:56] LABS: EOSINOPHILS # (AUTO) 0.1 (0.0-0.4); EOSINOPHILS % 2.3 % (0.0-6.0); HEMATOCRIT 35.4 % (34.2-44.1); HEMOGLOBIN 11.6 g/dL (12.0-16.0); LYMPHOCYTES # (AUTO) 2.1 (1.0-3.2); LYMPHOCYTES % 55.2 % (18.0-39.1); MEAN CORPUSCULAR HEMOGLOBIN 31.6 pg (28-32); MEAN CORPUSCULAR HGB CONC 32.8 g/dL (31-35); MEAN CORPUSCULAR VOLUME 96.5 fL (81-99); MONOCYTES # (AUTO) 0.6 (0.2-0.8); MONOCYTES % 15.4 % (4.4-11.3); NEUTROPHILS % 26.1 % (38.7-80.0); PLATELET COUNT 217 x10e3/uL (140-360); RED BLOOD COUNT 3.67 x10e6/uL (3.6-5.1); RED CELL DISTRIBUTION WIDTH 13.2 % (11.7-14.4)
[2019-08-04 06:07] LABS: INR 2.24; PROTHROMBIN TIME 26.4 seconds (11.9-14.5)
[2019-08-04 06:13] LABS: ALANINE AMINOTRANSFERASE 16 IU/L (0-55); ALBUMIN 2.9 g/dL (3.5-5.0); ALBUMIN/GLOBULIN RATIO 1.1 (0.8-2.0); ALKALINE PHOSPHATASE 43 IU/L (40-150); ANION GAP 9.8 mmol/L (8-16); BLOOD UREA NITROGEN < 5 mg/dL (7-26); CALCIUM 8.2 mg/dL (8.4-10.2); CARBON DIOXIDE 26 mmol/L (22-29); CHLORIDE 108 mmol/L (98-107); EST GLOMERULAR FILTRATION RATE > 60 ML/MIN (60-); GLUCOSE 89 mg/dL (74-118); POTASSIUM 3.8 mmol/L (3.5-5.1); SODIUM 140 mmol/L (136-145)
[2019-08-04 06:14] LABS: BUN/CREATININE RATIO 6 (6-25)
--- NOTE | 2019-08-04 07:30 | NUR ---
PATIENT IS ALERT, AWAKE, AND IN STABLE CONDITION WITH NO S/S OF RESPIRATORY DISTRESS. PATIENT DENIES PAIN. TELEMETRY APPLIED. PATIENT AMBULATES ON HER OWN AND REFUSES THE BED ALARM. CALL LIGHT IS WITHIN REACH, PATIENT INSTRUCTED TO CALL FOR ASSISTANCE NEEDED.
--- NOTE | 2019-08-04 07:35 | NUR ---
Bedside report and rounding completed with oncoming nurse. Patient in bed with call light within reach. Bed locked and in lowest position. No issues or concerns noted.
[2019-08-04 08:12] VITALS: BP 124/65
[2019-08-04 08:17] VITALS: BP 124/65
[2019-08-04] MEDS: AMIODARONE HCL 200 MG TAB PO SCH ×2 (08:44→16:48)
[2019-08-04] MEDS: AZITHROMYCIN 500MG/NS 250 ML 250 ML IV SCH (09:52)
--- NOTE | 2019-08-04 10:00 | Discharge Summary ---
HOSPITAL COURSE: Ms. Frazier is an 84-year-old female with history of hypertension, hyperlipidemia, atrial fibrillation, who came to the emergency room with diverticulitis, started on IV antibiotics; developed a fever, rapid ventricular rate. She was transferred to ICU, now back to the floor. Coumadin was restarted. INR today is 2.4, so the plan is to discharge her to home if it is okay with the consultants. She was started also on amiodarone by shrink pit supervisor. PHYSICAL EXAMINATION: GENERAL: She is alert and awake. She is feeling better. VITAL SIGNS: Temperature is 97, blood pressure 124/65. HEART: Regular rate. LUNGS: Clear to auscultation. ABDOMEN: Soft. LABORATORY DATA: On the blood work, white count 3.84, hemoglobin 11.6, hematocrit 35.4. INR 2.24 today. Potassium 3.8, creatinine 0.80, glucose 89. DISCHARGE DIAGNOSES: 1. Acute diverticulitis. 2. Atrial fibrillation with rapid ventricular rate, under control now. 3. Hypertension. 4. Hyperlipidemia. PLAN: At the present time is to discharge the patient home on digoxin, Coumadin, and amiodarone. She needs to follow up with her Cardiology, Dr. Osborne in one week. She needs follow up with me in one week. Continue other home medications. All this was discussed with nurse and patient. All questions were answered to satisfaction. MD CASEY Felix/RAINA /[id number]
[2019-08-04 11:38] VITALS: BP 102/58
[2019-08-04] MEDS: CEFEPIME 1GM/NS 0.9% 50 ML 50 ML IV SCH (11:53)
--- NOTE | 2019-08-04 14:24 | Progress Note ---
DATE: 08/04/2019 Cardiology progress note SUBJECTIVE: The patient denies chest pain or shortness of breath. OBJECTIVE: VITAL SIGNS: Temperature 96.3 degrees, pulse 74, respiratory rate 20, blood pressure 102/58, and oxygen saturation 94% on room air. GENERAL: An elderly woman, in no acute distress. Awake and alert. LUNGS: Clear to auscultation bilaterally. No wheezes or crackles. CARDIOVASCULAR: Normal rate. Regular rhythm. No murmur. Normal S1, S2. ABDOMEN: Soft, nontender. EXTREMITIES: No edema. NEURO: Nonfocal exam. LABORATORY DATA: WBC 3.84, hemoglobin 11.6, hematocrit 35.4, and platelets 217. Sodium 140, potassium 3.8, chloride 108, CO2 of 26, BUN less than 5, and creatinine 0.8. TELEMETRY: Normal sinus rhythm. IMPRESSION: 1. Atrial fibrillation with rapid response, currently sinus rhythm. 2. Abnormal ECG. 3. Diverticulitis. 4. Hypertension. 5. Hyperlipidemia. RECOMMENDATIONS: Currently sinus rhythm. Continue current cardiac medications. The patient is stable from a cardiovascular standpoint. Monitor the patient closely on telemetry. Thank you for this consult. We will continue to follow. Brooklyn Umaña MD ABS/MODL /[id number]
[2019-08-04 15:19] VITALS: BP 133/60
[2019-08-04] MEDS: WARFARIN SOD 5 MG TAB PO SCH (16:49)
--- NOTE | 2019-08-04 17:48 | NUR ---
RECEIVED CALL BACK FROM DR. FABIAN AND DR. HECTOR REGARDING DISCHARGE CLEARANCE- RECEIVED CLEARANCE FROM BOTH PHYSICIANS.
--- NOTE | 2019-08-04 18:21 | NUR ---
RECEIVED CALL BACK FROM DR. DOMÍNGUEZ- DR. DOMÍNGUEZ INFORMED ALL CONSULTS HAVE GIVEN PATIENT DISCHARGE CLEARANCE. DR. DOMÍNGUEZ STATED TO HAVE THE PATIENT F/U WITH HER NEXT WEEK, FOR THE PATIENT TO F/U WITH HER SURVEY METHODOLOGIST TO DISCUSS CARDIAC MEDICATIONS, AND TO INFORM THE PATIENT TO CONTINUE TAKING HER COUMADIN DOSE SHE WAS TAKING AT HOME (3MG) WELL DIGOXIN.
--- NOTE | 2019-08-04 19:19 | NUR ---
PATIENT IN STABLE CONDITION WITH NO S/S OF RESPIRATORY DISTRESS. NO PAIN VOICED. PATIENT INFORMED SHE WILL BE GOING HOME THIS EVENING- NIGHT NURSE INFORMED OF DISCHARGE ORDER AND F/U APPOINTMENTS. CALL LIGHT IS WITHIN REACH, PATIENT INSTRUCTED TO CALL FOR ASSISTANCE NEEDED. BEDSIDE SHIFT REPORT GIVEN TO ONCOMING NURSE.
[2019-08-04] MEDS ORDERED: CIPRO500 MG PO (19:27)
[2019-08-04] MEDS ORDERED: FLAGYL250 MG PO (19:28)
[2019-08-04] MEDS ORDERED: AMIODARONE HCL200 MG (19:29)
== END 2019-08-04 20:20 | disposition home or self-care (01) | DRG 391 ==
LOC: FSED 17:52 → ERHOLD 18:35 → MED/SURG2 21:18 → ICU 07-31 22:38 → MED/SURG3 08-01 22:36
PROVIDERS: ADMIT Internal Medicine; ATTEND Internal Medicine
DX: K57.20 Diverticulitis of large intestine with perforation and abscess without bleeding (principal); I50.33 Acute on chronic diastolic (congestive) heart failure; J18.9 Pneumonia, unspecified organism; I48.0 Paroxysmal atrial fibrillation; I11.0 Hypertensive heart disease with heart failure; Z86.73 Personal history of transient ischemic attack (TIA), and cerebral infarction without residual deficits; E78.00 Pure hypercholesterolemia, unspecified; I48.91 Unspecified atrial fibrillation; Z90.710 Acquired absence of both cervix and uterus; R30.0 Dysuria
CPT/HCPCS: 36415; 71045; 74177; 74470; 80048; 80053; 81001; 82550; 82553; 82607; 82728; 82746; 83540; 83735; 83880; 84100; 84466; 84484; 85007; 85025; 85027; 85045; 85610; 85730; 93005; 93306; 96361; 99283; J0456; J0692; J1160; J1650; J2270; J2405; J2543; J7030; J7042; J7050; Q9967

== ENCOUNTER 2019-08-30 13:48 | Emergency (ER) | payer MEDICARE ==
[~2019-08-30] VITALS: Ht 154.9 cm; Wt 59.9 kg
[~2019-08-30 13:48] MED LIST: AMIODARONE HCL200 MG; CIPRO500 MG PO; DIGOXIN125 MCG PO; FLAGYL250 MG PO; JANTOVEN3 MG PO; METOPROLOL TART25 MG PO; SIMVASTATIN20 MG PO
--- OUTSIDE RECORDS SUMMARY | 2019-08-30 13:51 | XMS REPORT ---
Author Author [facility] Organization [facility] Address Unknown Phone Unavailable Care Team Providers Care Consumer Educator Name Role Phone SAUMYA DOMÍNGUEZ MD PP SAUMYA DOMÍNGUEZ Unavailable Unavailable Payers Payer Name Policy Type Policy Number Effective Date Expiration Date Medicare A & B [id number] 1999 00:00:00 Problems Condition Name Condition Details Condition Category Status Onset Date Resolution Date Last Treatment Date Treating Clinician Comments LEFT SIDED COLITIS WITH ABSCESS Problem Active Allergies, Adverse Reactions, Alerts This patient has no known allergies or adverse reactions. Medications Ordered Medication Name Filled Medication Name Start Date Stop Date Current Medication? Ordering Clinician Indication Dosage Frequency Signature (SIG) Comments Components Amiodarone Hcl 200 Mg Tablet Amiodarone Hcl 200 Mg Tablet Yes Daily Ciprofloxacin Hcl (Cipro) 500 Mg Tablet Ciprofloxacin Hcl (Cipro) 500 Mg Tablet Yes 500 Every 12 Hours Digoxin 125 Mcg Tablet Digoxin 125 Mcg Tablet Yes .125 Daily Metoprolol Tartrate 25 Mg Tablet Metoprolol Tartrate 25 Mg Tablet Yes 25 Twice A Day as needed for Prn Metronidazole (Flagyl) 250 Mg Tablet Metronidazole (Flagyl) 250 Mg Tablet Yes 500 Every 8 Hours Simvastatin 20 Mg Tablet Simvastatin 20 Mg Tablet Yes 20 Today At 9:00PM Warfarin Sodium (Jantoven) 3 Mg Tablet Warfarin Sodium (Jantoven) 3 Mg Tablet Yes 3 Daily Procedures and Interventions Procedure Date / Time Performed Performing Clinician Computed tomography of abdomen and pelvis with contrast 2019-07-29 00:00:00 HECTORMERY Viv Encounters Start Date/Time End Date/Time Encounter Type Admission Type Attending Clinicians Care Facility Care Department Encounter ID 2019-07-28 18:35:00 2019-08-04 20:20:00 Discharged Inpatient 1 SAUMYA DOMÍNGUEZ [facility] [id number] Results Test Description Test Time Test Comments Text Results Atomic Results Result Comments Sodium Level 2019-08-04 06:14:00 Sodium Level (test ttzr=0475-7) 140 136-145 Potassium Yklds7964-34-05 06:14:00* Test Item Value Reference Range Comments Potassium Level (test mugt=7673-3) 3.8 3.5-5.1 Chloride Neelq3957-12-30 06:14:00* Test Item Value Reference Range Comments Chloride Level (test sgsh=2179-9) 108 98-107 Carbon Dioxide Wtojp9088-75-04 06:14:00* Test Item Value Reference Range Comments Carbon Dioxide Level (test yldq=7747-2) 26 22-29 Anion Liq3953-94-28 06:14:00* Test Item Value Reference Range Comments Anion Gap (test bikx=01685-5) 9.8 8-16 Blood Urea Ufuehzpk5727-59-94 06:14:00* Test Item Value Reference Range Comments Blood Urea Nitrogen (test vgpt=5670-3) < 5 7-26 Wxabrtvlcc0753-77-59 06:14:00* Test Item Value Reference Range Comments Creatinine (test kjsl=3411-7) 0.80 0.57-1.11 BUN/Creatinine Byadn1501-83-37 06:14:00* Test Item Value Reference Range Comments BUN/Creatinine Ratio (test tlgx=5169-1) 6 6-25 Estimat Glomerular Filtration Sjep2524-49-37 06:14:00* Test Item Value Reference Range Comments Estimat Glomerular Filtration Rate (test pdsw=766874986) > 60 >60 Ranges were taken from the National Kidney Disease Education Program and the [facility] Kidney Foundation literature.Reference ranges:60 or greater: Jcyhoz91-07 ( for 3 consecutive months): Chronic kidney disease 15 or less: Kidney failure Glucose Joyig9211-58-18 06:14:00* Test Item Value Reference Range Comments Glucose Level (test gzme=OZR7844) 89 74-118 Calcium Nrdck2860-99-82 06:14:00* Test Item Value Reference Range Comments Calcium Level (test dpvo=98528-4) 8.2 8.4-10.2 Total Bslwanfal8720-18-92 06:14:00* Test Item Value Reference Range Comments Total Bilirubin (test ocmf=9409-1) 0.3 0.2-1.2 Aspartate Amino Transf (AST/SGOT)2019-08-04 06:14:00* Test Item Value Reference Range Comments Aspartate Amino Transf (AST/SGOT) (test code=Aspartate Amino Transf (AST/SGOT)) 44 5-34 Alanine Aminotransferase (ALT/SGPT)2019-08-04 06:14:00* Test Item Value Reference Range Comments Alanine Aminotransferase (ALT/SGPT) (test jqut=7638-6) 16 0-55 Total Gwznqgt2096-73-58 06:14:00* Test Item Value Reference Range Comments Total Protein (test lati=2473-4) 5.6 6.5-8.1 Zouznhn2759-69-00 06:14:00* Test Item Value Reference Range Comments Albumin (test lbzd=6345-4) 2.9 3.5-5.0 Pbziybai4072-68-96 06:14:00* Test Item Value Reference Range Comments Globulin (test bbdt=42968-9) 2.7 2.3-3.5 Albumin/Globulin Ekfph3755-04-04 06:14:00* Test Item Value Reference Range Comments Albumin/Globulin Ratio (test nevw=4376-1) 1.1 0.8-2.0 Alkaline Caxexdpfkjs9631-25-86 06:14:00* Test Item Value Reference Range Comments Alkaline Phosphatase (test ymzb=9324-5) 43 40-150 Prothrombin Uwzm8066-28-03 06:08:00* Test Item Value Reference Range Comments Prothrombin Time (test wiud=1243-4) 26.4 11.9-14.5 Prothromb Time International Svkpt0638-24-55 06:08:00* Test Item Value Reference Range Comments Prothromb Time International Ratio (test esie=0831-5) 2.24 Oral Anticoagulant Therapy INR Values:1. Low Intensity Therapy 1.5 - 2.02 . Moderate Intensity Therapy 2.0 - 3.03. High Intensity Therapy(1) 2.5 - 3. 54. High Intensity Therapy(2) 3.0 - 4.05. Panic Value INR > 5.0 White Blood Tqcya7680-60-02 06:05:00* Test Item Value Reference Range Comments White Blood Count (test ghjp=2298-3) 3.84 4.8-10.8 Red Blood Xnxoq8180-71-93 06:05:00* Test Item Value Reference Range Comments Red Blood Count (test buzi=915-9) 3.67 3.6-5.1 Asgaddvscx4723-76-63 06:05:00* Test Item Value Reference Range Comments Hemoglobin (test ngth=22077-9) 11.6 12.0-16.0 Mqqlzcggar6297-54-06 06:05:00* Test Item Value Reference Range Comments Hematocrit (test iagp=3671-6) 35.4 34.2-44.1 Mean Corpuscular Llltgz0436-74-54 06:05:00* Test Item Value Reference Range Comments Mean Corpuscular Volume (test lfcf=228-1) 96.5 81-99 Mean Corpuscular Sgjgxrsvjj7290-84-83 06:05:00* Test Item Value Reference Range Comments Mean Corpuscular Hemoglobin (test ypcc=079-9) 31.6 28-32 Mean Corpuscular Hemoglobin Gooirrn5941-27-30 06:05:00* Test Item Value Reference Range Comments Mean Corpuscular Hemoglobin Concent (test nfkq=686-1) 32.8 31-35 Red Cell Distribution Siguf9621-37-06 06:05:00* Test Item Value Reference Range Comments Red Cell Distribution Width (test iwes=94327-8) 13.2 11.7-14.4 Platelet Cxwkc1957-83-69 06:05:00* Test Item Value Reference Range Comments Platelet Count (test xqea=507-3) 217 140-360 Neutrophils (%) (Auto)2019-08-04 06:05:00* Test Item Value Reference Range Comments Neutrophils (%) (Auto) (test bjld=97688-4) 26.1 38.7-80.0 Lymphocytes (%) (Auto)2019-08-04 06:05:00* Test Item Value Reference Range Comments Lymphocytes (%) (Auto) (test kawt=946-1) 55.2 18.0-39.1 Monocytes (%) (Auto)2019-08-04 06:05:00* Test Item Value Reference Range Comments Monocytes (%) (Auto) (test fvem=3250-1) 15.4 4.4-11.3 Eosinophils (%) (Auto)2019-08-04 06:05:00* Test Item Value Reference Range Comments Eosinophils (%) (Auto) (test idea=544-1) 2.3 0.0-6.0 Basophils (%) (Auto)2019-08-04 06:05:00* Test Item Value Reference Range Comments Basophils (%) (Auto) (test nbkb=411-2) 1.0 0.0-1.0 IM GRANULOCYTES %2019-08-04 06:05:00* Test Item Value Reference Range Comments IM GRANULOCYTES % (test code=IM GRANULOCYTES %) 0.0 0.0-1.0 Neutrophils # (Auto)2019-08-04 06:05:00* Test Item Value Reference Range Comments Neutrophils # (Auto) (test dssk=667-4) 1.0 2.1-6.9 Lymphocytes # (Auto)2019-08-04 06:05:00* Test Item Value Reference Range Comments Lymphocytes # (Auto) (test iydu=00283-2) 2.1 1.0-3.2 Monocytes # (Auto)2019-08-04 06:05:00* Test Item Value Reference Range Comments Monocytes # (Auto) (test ydbz=858-3) 0.6 0.2-0.8 Eosinophils # (Auto)2019-08-04 06:05:00* Test Item Value Reference Range Comments Eosinophils # (Auto) (test ykdk=737-7) 0.1 0.0-0.4 Basophils # (Auto)2019-08-04 06:05:00* Test Item Value Reference Range Comments Basophils # (Auto) (test gofu=877-7) 0.0 0.0-0.1 Absolute Immature Granulocyte (cmng3969-32-67 06:05:00* Test Item Value Reference Range Comments Absolute Immature Granulocyte (auto (test code=Absolute Immature Granulocyte (auto) 0 0-0.1 CHEST SINGLE (PORTABLE)2019-08-03 09:23:00 [place] [address] Patient Name: PANKAJ RICHMOND MR #: [id number] : 1935 Age/Sex: 84/F Req #: [id number] Adm Physician: SAUMYA DOMÍNGUEZ MD Ordered by: RENNY WESTBROOK MD Report #: [id number] Location: [facility] Room/Bed: [facility] Procedure: [id number] DX/ CHEST SINGLE (PORTABLE) Exam Date: 08/03/19 Exam Logan e: 0540 REPORT STATUS: Signed EX AMINATION: Chest PA and lateral views INDICATION: Diastolic CHF. COMP ARISON: None FINDINGS: TUBES and LINES: None. LUNGS: Increase d density in the left lower hemithorax suggestive of consolidation. Mild pulmo nary venous congestion. PLEURA: Trace right and small left pleural effusio n. No pneumothorax. HEART AND MEDIASTINUM: Cardiac size is mildly enlarged . There are atherosclerotic calcifications within the aorta. BONES AND SO FT TISSUES: No acute osseous lesion. UPPER ABDOMEN: No free air under the diaphragm. IMPRESSION: 1. Mild bilateral pulmonary venous co ngestion. 2. Trace right and small left pleural effusions. 3. Left bas ilar consolidation. Signed by: Dr. Simeon Bae M.D. on 08/03/19 9:26 AM Dictated By: COSMO BAE MD, MD 5 Transcribed By: CY on 08/03/19925 COPY TO: RENNY WESTBROOK MD Magnesium Helup3909-31-59 07:32:00* Test Item Value Reference Range Comments Magnesium Level (test srzl=67172-4) 1.5 1.3-2.1 B-Type Natriuretic Kcwcbft3031-61-31 11:19:00* Test Item Value Reference Range Comments B-Type Natriuretic Peptide (test bkaf=46130-9) 367.3 0-100 Phosphorus Jskfl1301-98-95 23:33:00* Test Item Value Reference Range Comments Phosphorus Level (test sywg=HYZ9159) 2.0 2.3-4.7 Creatine Zyiksq8117-60-02 23:33:00* Test Item Value Reference Range Comments Creatine Kinase (test mfom=5086-6) 74 29-168 Creatine Kinase WZ2787-03-68 23:33:00* Test Item Value Reference Range Comments Creatine Kinase MB (test okpn=94165-5) 1.20 0-5.0 Troponin X3400-66-09 23:33:00* Test Item Value Reference Range Comments Troponin I (test duex=HYA0096) 0.003 0-0.300 Activated Partial Thromboplast Jpgv8342-12-21 23:10:00* Test Item Value Reference Range Comments Activated Partial Thromboplast Time (test xwgk=87251-4) 39.2 23.8-35.5 Ilzuhc6086-61-19 06:54:00* Test Item Value Reference Range Comments Folate (test koja=2160-6) >20.0 >3.0 A serum folate concentration of less than 3.1 ng/mL isconsidered to represent cl inical deficiency.Performed at: - [facility] [address] [id number] Director: Steven Hickman MD, Phone: [phone] WBC 2019-07-30 23:06:00* Test Item Value Reference Range Comments Urine WBC (test nxng=7782-3) 0-5 0-5 Urine NCU6461-10-62 23:06:00* Test Item Value Reference Range Comments Urine RBC (test swmr=94735-3) 6-10 0-5 Urine Grwbbqkw7657-06-98 23:06:00* Test Item Value Reference Range Comments Urine Bacteria (test btks=33566-2) MODERATE NONE Urine Epithelial Cbsal6138-13-92 23:06:00* Test Item Value Reference Range Comments Urine Epithelial Cells (test qgvg=28370-8) FEW NONE Urine Itvww1129-68-46 22:40:00* Test Item Value Reference Range Comments Urine Color (test raob=3551-4) YELLOW YELLOW Urine Caadogl1012-68-55 22:40:00* Test Item Value Reference Range Comments Urine Clarity (test qxol=02272-6) CLOUDY CLEAR Urine Specific Mtngilw7824-29-28 22:40:00* Test Item Value Reference Range Comments Urine Specific [place] (test osdn=7780-4) 1.025 1.010-1.025 Urine lL1449-19-32 22:40:00* Test Item Value Reference Range Comments Urine pH (test loaa=10018-6) 5.5 5-7 Urine Leukocyte Rrmclugp9814-20-63 22:40:00* Test Item Value Reference Range Comments Urine Leukocyte Esterase (test iuzh=9079-5) NEGATIVE NEGATIVE Urine Aszxyzq8524-84-53 22:40:00* Test Item Value Reference Range Comments Urine Nitrite (test yzjq=30948-7) NEGATIVE NEGATIVE Urine Ugejctj6678-53-35 22:40:00* Test Item Value Reference Range Comments Urine Protein (test lwjd=4802-6) NEGATIVE NEGATIVE Urine Glucose (UA)2019-07-30 22:40:00* Test Item Value Reference Range Comments Urine Glucose (UA) (test dhxs=4658-6) NEGATIVE NEGATIVE Urine Yuhcnyn7233-18-32 22:40:00* Test Item Value Reference Range Comments Urine Ketones (test fovb=24397-6) 2+ NEGATIVE Urine Mnvtxkyyzpue2059-80-66 22:40:00* Test Item Value Reference Range Comments Urine Urobilinogen (test cbrg=69825-4) 0.2 0.2-1 Urine Qagwqwaug3064-48-92 22:40:00* Test Item Value Reference Range Comments Urine Bilirubin (test bdjx=1788-3) NEGATIVE NEGATIVE Urine Ujmvs4514-73-75 22:40:00* Test Item Value Reference Range Comments Urine Blood (test rejn=30365-3) TRACE NEGATIVE Vitamin B12 Xesyd3051-76-08 07:50:00* Test Item Value Reference Range Comments Vitamin B12 Level (test nojk=73758-6) 1677 213-816 Fvbhutpx1975-94-05 06:16:00* Test Item Value Reference Range Comments Ferritin (test uzto=6097-8) 87.12 4.63-204.00 Iron Caizr3412-60-79 05:53:00* Test Item Value Reference Range Comments Iron Level (test ersa=0499-8) 78 50-170 Total Iron Binding Xdbfryxg8750-46-78 05:53:00* Test Item Value Reference Range Comments Total Iron Binding Capacity (test jvuz=0491-2) 249 261-478 Percent Iron Fqhgxhjuoc8932-99-41 05:53:00* Test Item Value Reference Range Comments Percent Iron Saturation (test vrkf=4362-0) 31 15-50 Invccfzklyk9538-22-03 05:53:00* Test Item Value Reference Range Comments Transferrin (test yxjj=2693-9) 178 180-382 Percent Reticulocyte Goeey6348-88-00 05:46:00* Test Item Value Reference Range Comments Percent Reticulocyte Count (test kgzl=03950-1) 1.2 0.8-2.2 CT ABDOMEN/PELVIS I3561-67-64 00:25:00 [place] [address] Patient Name: PANKAJ RICHMOND MR #: [id number] : 1935 Age/Sex: 84/F Req #: [id number] Adm Physician: SAUMYA DOMÍNGUEZ MD Ordered by: MERY HECTOR MD Report #: [id number] Location: MED/SURG2 Room/Bed: [facility] Procedure: [id number] CT/CT ABDOMEN/PELVIS W Exam Date: Exam Time: REPORT STATUS: Signed EXAM: CT Abdomen and Pelvis WITH contrast INDICATION: Diverticulitis COMPARISON: None. TECHNIQUE: Abdomen and pelvis were scanned utilizing a multidetector helical scanner from the lung base to the pubic symphysis after administration of IV c ontrast. Coronal and sagittal reformations were obtained. Routine protocol was performed. Scan was performed when during portal venous phase. IV CO NTRAST: 100 mL of Isovue 370 ORAL CONTRAST: None COMPLIC ATIONS: None RADIATION DOSE: Total DLP: 200 mGy*cm Estimated effective dose: (DLP x 0.015 x size factor) mSv CTDIvol has been reviewed . It is below the limits set by the Radiation Protocol Committee (RPC). Dose modulation, iterative reconstruction, and/or weight based adjustment of the mA/kV was utilized to reduce the radiation dose to as low as reasonably ac hievable. FINDINGS: LINES and TUBES: None. LOWER THORAX: Partial ly visualized left basilar ground glass/consolidative opacity HEPATOB ILIARY: A 2.1 cm simple appearing left hepatic cyst. No suspicious focal hepa tic lesions. No biliary ductal dilation. GALLBLADDER: No radio-opaque ston es or sludge. No wall thickening. SPLEEN: No splenomegaly. PANCREAS: No focal masses or ductal dilatation. ADRENALS: No adrenal nodules KIDNEYS/URETERS: Kidneys enhance symmetrically. No hydronephrosis. No cystic or solid mass lesions. No stones. GI TRACT: Focal wall thickening in the sigmoid colon with surrounding fat stranding. Colonic diverticuli, worst in the sigmoid colon. No abnormal distention or evidence of bowel obstruction. Appendix is normal. PELVIC ORGANS/BLADDER: Hysterectomy. No adnexal masses. Urinary bladder unremarkable. LYMPH NODES: No lymphadenopathy. VES SELS: Scattered mild arterial vascular calcifications. PERITONEUM / RETROPE RITONEUM: No free air or fluid. BONES: There are degenerative changes in th e spine. Mild T12 vertebral body compression fracture, likely chronic. Low bon e mineral density. SOFT TISSUES: Unremarkable. IMPRESSION: 1. Acute uncomplicated sigmoid diverticulitis. 2. Mild T12 verteb ral body compression fracture, likely chronic. Low bone mineral density. 3. Partially visualized left basilar ground glass/consolidative opacity could be atelectasis or pneumonia. Signed by: Maurice Barron DO on 07/30/2019 12 :30 AM Dictated By: MAURICE BARRON DO Transcribed By: CY on 07/30/1929 Daniel TOLBERT TO: MERY HECTOR MD Differential Total Cells Jenxqro0421-57-45 19:08:00* Test Item Value Reference Range Comments Differential Total Cells Counted (test code=Differential Total Cells Counted) 100 Neutrophils % (Manual)2019-07-29 19:08:00* Test Item Value Reference Range Comments Neutrophils % (Manual) (test htnd=46065-6) 49 40-74 Lymphocytes % (Manual)2019-07-29 19:08:00* Test Item Value Reference Range Comments Lymphocytes % (Manual) (test bqng=490-0) 35 19-48 Monocytes % (Manual)2019-07-29 19:08:00* Test Item Value Reference Range Comments Monocytes % (Manual) (test vegj=302-1) 7 3.4-9.0 Eosinophils % (Manual)2019-07-29 19:08:00* Test Item Value Reference Range Comments Eosinophils % (Manual) (test mzve=167-7) 2 0-7 Reactive Rrakxevrarj2240-68-33 19:08:00* Test Item Value Reference Range Comments Reactive Lymphocytes (test ouca=81194-1) 7 Platelet Jvetelch8566-84-59 19:08:00* Test Item Value Reference Range Comments Platelet Estimate (test gvdx=03287-1) ADEQUATE Platelet Morphology Xesqfth8413-59-35 19:08:00* Test Item Value Reference Range Comments Platelet Morphology Comment (test yytq=01738-2) NORMAL Wkvsiqtxkyhmfq4507-28-72 19:08:00* Test Item Value Reference Range Comments Poikilocytosis (test nppq=978-8) SLIGHT Tfyrhwpwfiit3821-87-18 19:08:00* Test Item Value Reference Range Comments Anisocytosis (test nslk=422-8) MODERATE Red Cell Morphology Xwlrxqc8980-02-46 19:08:00* Test Item Value Reference Range Comments Red Cell Morphology Comment (test fpce=7792-0) NORMAL
--- NOTE | 2019-08-30 15:24 | Diagnostic Imaging Report ---
Ankle complete CPT CODE: 72280 HISTORY: Fall TECHNIQUE: Three views left ankle obtained COMPARISON: None. FINDINGS: The distal tibia and fibula appear intact. Ankle mortise remains symmetric. There is soft tissue swelling adjacent to the lateral malleolus. The calcaneus appears intact with tiny plantar spurs. Midfoot appears intact. There is suggestion of a nondisplaced fracture through the base of the fifth metatarsal. IMPRESSION: No evidence of acute fracture or dislocation involving the ankle. Suspected nondisplaced fracture of the fifth metatarsal base. Signed by: Dr. Aftab Hicks MD on 08/30/2019 3:21 PM
--- NOTE | 2019-08-30 15:26 | Diagnostic Imaging Report ---
Foot complete CPT code: 16509 Indication: Fall ^fall ^[id number] ^1520 Technique: A.P., oblique and lateral views of the left foot obtained. Comparison: Ankle x-rays obtained at the same time Findings: The area of pain is not indicated or marked. Calcaneus is intact with small plantar and posterior spurs. The midfoot is intact. Visualized portion of the midfoot is intact. Transverse, nondisplaced fracture of the base of the fifth metatarsal without intra-articular extension. Remainder of the digits are intact. No radiopaque foreign bodies in the soft tissues. IMPRESSION: Nondisplaced fracture of the base of the fifth metatarsal. Signed by: Dr. Aftab Hicks MD on 08/30/2019 3:23 PM
--- NOTE | 2019-08-30 15:39 | Diagnostic Imaging Report ---
Examination: CT head without contrast Clinical Indication: Fall with left head injury. Technique: Transaxial noncontrast images from the skull base through the vertex were obtained. Sagittal and coronal reformatted images were done. Dose modulation, iterative reconstruction, and/or weight based adjustment of the mA/kV was utilized to reduce the radiation dose to as low as reasonably achievable. Comparison: None. Findings: Scalp: No abnormalities. Bones: Intact. No fractures. No blastic or lytic lesions. Brain sulci: Appropriate for patient's age. Ventricles: Normal in size and configuration. No hydrocephalus. . Extra-axial space: No abnormalities. Parenchyma: There are subtle areas of low-attenuation within periventricular white matter, nonspecific, but could represent microvascular ischemic disease. No masses, hemorrhage, or acute or chronic cortical based vascular insults. Suprasellar region: No abnormalities. Craniocervical junction: The foramen magnum is patent. No Chiari one malformation. Incidental findings: Atherosclerotic calcification of the cavernous and supraclinoid internal carotid arteries. Impression: 1. No acute intracranial finding, specifically no hemorrhage. 2. Minimal chronic microvascular ischemic change. Signed by: Dr. Maia Florian M.D. on 08/30/2019 3:35 PM
[2019-08-30] MEDS ORDERED: BACITRACIN ZINC 0.9GM TP ONE (15:58)
== END 2019-08-30 16:20 | disposition home or self-care (01) ==
LOC: FSED 13:48
DX: S00.83XA Contusion of other part of head, initial encounter (principal); S92.352A Displaced fracture of fifth metatarsal bone, left foot, initial encounter for closed fracture; S60.511A Abrasion of right hand, initial encounter; S80.212A Abrasion, left knee, initial encounter; M25.572 Pain in left ankle and joints of left foot; W01.0XXA Fall on same level from slipping, tripping and stumbling without subsequent striking against object, initial encounter; Y92.008 Other place in unspecified non-institutional (private) residence as the place of occurrence of the external cause; I48.91 Unspecified atrial fibrillation; E78.5 Hyperlipidemia, unspecified; Z86.73 Personal history of transient ischemic attack (TIA), and cerebral infarction without residual deficits
CPT/HCPCS: 70450; 85610; 99283